=== PATIENT | male | born 1950 | race Caucasian/White ===

== ENCOUNTER → 2021-08-09 11:21 | Outpatient (CLI) | payer MEDICARE, SELFPAY ==
--- NOTE | 2021-08-09 | DI.MRI.S_ITS ---
PROCEDURE: MR LUMBAR SPINE WO CON INDICATIONS: Radiculopathy, lumbar region TECHNIQUE: Noncontrast sagittal T1 spin echo and T2 fast echo, sagittal STIR, and T2 fast spin echo through the lumbar spine. Oblique axial T2 weighted images are performed through the lower lumbar spine. COMPARISON: [facility], CR, XR LUMBAR SPINE WITH OLBIQUES PLUS FLEXION EXTENSION, 02/06/2020, 16:11. [facility] Outside Film, MR, MR LUMBAR SPINE WITHOUT CONTRAST, 10/12/2017, 16:45. [facility] Outside Film, MR, MR LUMBAR SPINE WITHOUT CONTRAST, 03/31/2019, 11:16. The outside images have no accompanying reports. FINDINGS: Image quality: Excellent. Alignment and Curvature: There is normal bony alignment. Bone Marrow: Marrow is of normal overall signal. No acute vertebral body compression fractures. Spinal Cord: Conus medullaris terminates at the L1 level. Visualized cord demonstrates normal signal and size. Paraspinous Soft Tissues: No paravertebral masses. T11-T12: Moderate loss of disc height is seen. Loss of disc signal is seen. There is a central disc extrusion, with superior migration of the disc material. No significant neural foraminal narrowing is seen. Mild to moderate central canal narrowing is seen, with mild mass effect upon the ventral spinal cord, as on series 2, image 9. When comparison is made with the prior images, these findings are similar. T12-L1: No significant abnormality is seen. L1-L2: The disc height and disc signal are relatively well preserved. Mild disc bulge is seen, with a central/left disc protrusion, as on series 5, image 11. There is [id number] left-sided and no significant right-sided neural foraminal narrowing seen. Mild central canal narrowing is seen. The central/left disc protrusion is new compared to 2019. L2-L3: The disc height is well-preserved. Loss of disc signal is seen at this level. Moderate generalized disc bulge is seen. There is a superimposed central disc protrusion. Mild to moderate facet hypertrophy is seen. There is moderate to severe left-sided and at least moderate right-sided neural foraminal narrowing seen. There is a degree of compression seen upon the exiting nerve roots. Moderate central canal narrowing is seen. These imaging findings have progressed compared to the prior study. L3-L4: The disc height is well-preserved. Loss of disc signal is seen at this level. At least moderate disc bulge is seen, which is eccentric to the right. There is a superimposed central disc protrusion. Moderate facet joint hypertrophy is seen. There is moderate to severe bilateral neural foraminal narrowing seen, right worse than left. There is a degree of compression seen upon the exiting nerve roots. Moderate to severe central canal narrowing is seen at this level. These degenerative changes are mildly progressed compared to 2019. L4-L5: The disc height is well-preserved. Loss of disc signal is seen at this level. At least moderate disc bulge is seen, which is eccentric to the left. There is a superimposed central disc protrusion. At least moderate facet hypertrophy is seen. There is moderate to severe bilateral neural foraminal narrowing seen, with an associated a degree of compression seen upon the exiting nerve roots. Moderate central canal narrowing is seen. These degenerative changes are slightly progressed compared to 2019. L5-S1: The disc height and disc signal are relatively well preserved. Mild to moderate disc bulge is seen, which is eccentric to the right. There is at least moderate facet hypertrophy seen. There is moderate to severe bilateral neural foraminal narrowing seen, with an associated a degree of compression seen upon the exiting nerve roots. Minimal to mild central canal narrowing is seen. When comparison is made with the prior images, these findings are similar. IMPRESSION: Multiple levels of lumbar spine degenerative change are seen, which are overall progressed compared to the outside 2019 examination. Dictated by: Abdi Gabriel M.D. on 08/09/2021 at 15:33 Approved by: Abdi Gabriel M.D. on 08/09/2021 at 15:38
== END ==
PROVIDERS: PCP Internal Medicine; Referring Provider Physical Medicine & Rehabilitation; Visit Provider Physical Medicine & Rehabilitation
DX: M47.26 Other spondylosis with radiculopathy, lumbar region (principal); M47.27 Other spondylosis with radiculopathy, lumbosacral region
CPT/HCPCS: 72148

== ENCOUNTER → 2021-09-26 10:50 | Outpatient (CLI) | payer MEDICARE, SELFPAY ==
--- NOTE | 2021-09-26 11:01 | DI.CT.S_ITS ---
PROCEDURE: CT LUMBAR SPINE WO CON INDICATIONS: SPINAL STENOSIS TECHNIQUE: Noncontrast 3 mm thick sections acquired from the T12 level to the sacrum. Sagittal and coronal reformats were constructed. For radiation dose reduction, the following was used: automated exposure control. COMPARISON: [facility], MR, MR LUMBAR SPINE WO CON, 08/09/2021, 12:04. FINDINGS: Normal lumbar vertebral body height and alignment. No suspicious lytic or blastic osseous lesion. 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 Disc height loss at every level in the lumbar spine. Vacuum disc phenomenon noted at T11-T12 and L2-L3. Mgfj-[id number] facet osteoarthropathy from L3-L4 through L5-S1 characterized by joint space narrowing with subchondral sclerosis and osteophytosis. Unenhanced regional soft tissues demonstrate no acute abnormality. Aortic and common iliac atherosclerosis. Punctate non-obstructing right renal calculi. T12-L1: No spinal canal or neural foraminal stenosis. L1-L2: Diffuse disc bulge without spinal canal stenosis. Foraminal components of the disc bulge produce mild bilateral neural foraminal stenosis in conjunction with congenital shortening of the pedicles. L2-L3: Diffuse disc bulge flattens the ventral thecal sac, combining with bulky facet hypertrophy and buckling of the ligamentum flavum to produce overall mild to moderate spinal canal stenosis, with contribution from congenital shortening of the pedicles. L3-L4: Diffuse disc bulge and a superimposed broad-based posterior disc protrusion flatten and indent the ventral thecal sac. There is a calcified annular component of the disc bulge blending with posterior osteophytic ridging of the inferior L3 endplate in the central and paracentral zones. There is overall moderate to severe spinal canal stenosis. Foraminal components of the disc bulge and facet hypertrophy combine to produce moderate to severe bilateral neural foraminal stenosis. L4-L5: Diffuse disc bulge with a superimposed broad-based posterior disc protrusion flattens and indents the ventral thecal sac, combining with moderate facet hypertrophy and buckling of the ligamentum flavum to produce overall moderate spinal canal stenosis. Foraminal components of the disc bulge and facet hypertrophy combine to produce moderate to severe bilateral neural foraminal stenosis. L5-S1: Diffuse disc bulge with displacement of the descending S1 nerve roots in both subarticular zones. Foraminal components of the disc bulge and facet hypertrophy combine to produce moderate bilateral neural foraminal stenosis with disc material abutting and perhaps slightly flattening the exiting L5 nerve roots. 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 Moderate to severe spinal canal stenosis at L3-L4 with moderate spinal canal and subarticular zone stenosis at L4-L5 and L5-S1 also. Varying degrees of neural foraminal stenosis up to moderate with areas of potential focal nerve root impingement. Findings have not changed considerably when compared with July 2021 exam, allowing for slight differences due to change in modality. Dictated by: Krzysztof Mason M.D. on 09/26/2021 at 16:35 Approved by: Krzysztof Mason M.D. on 09/26/2021 at 16:44
== END ==
PROVIDERS: PCP Internal Medicine; Referring Provider Orthopaedic Surgery Orthopaedic Surgery of the Spine; Visit Provider Orthopaedic Surgery Orthopaedic Surgery of the Spine
DX: Z01.818 Encounter for other preprocedural examination (principal); M48.061 Spinal stenosis, lumbar region without neurogenic claudication
CPT/HCPCS: 72131; 93005; 93010

== ENCOUNTER → 2021-10-13 10:41 | Outpatient (CLI) | payer MEDICARE, SELFPAY ==
[2021-10-13 11:42] LABS: Add Manual Diff / Slide Review NO; Basophils Absolute Auto 100 /uL (0-100); Basophils Percent Auto 1.2 % (0-2); Eosinophils Absolute Auto 100 /uL (0-450); Eosinophils Percent Auto 1.9 % (2-4); Hemoglobin 13.3 g/dL (13.5-17.5); Lymphocytes Absolute Auto 1800 /uL (1100-4500); Lymphocytes Percent Auto 24.2 % (25-40); Mean Corpuscular HGB Conc 35.1 % (30-36); Mean Corpuscular Hemoglobin 30.6 PG (26-34); Mean Corpuscular Volume 87.2 fL (80-100); Monocytes Absolute Auto 500 /uL (0-900); Neutrophils Absolute Auto 4900 /uL (1500-7000); Neutrophils Percent Auto 65.7 % (50-75); Platelet Count 248 X10^3/uL (150-400); Red Blood Cell Count 4.35 X10^6/uL (4.5-5.9); White Blood Cell Count 7.4 X10^3/uL (4.5-11.0)
[2021-10-13 12:05] LABS: Hemoglobin A1C% w Est Avg Glu 6.1 % (4.0-6.0)
[2021-10-13 12:06] LABS: BUN Creatinine Ratio 23.4 (6-22); Blood Urea Nitrogen 29 mg/dL (9-20); Calcium 9.5 mg/dL (8.4-10.2); Carbon Dioxide 33 mmol/L (22-32); Chloride 100 mmol/L (98-107); Estimated Glomerular Filt Rate > 60 mL/min (>60); Glucose 107 mg/dL (80-110); HEMOLYSIS < 15 (0-50); Potassium 4.1 mmol/L (3.4-5.1); Sodium 140 mmol/L (137-145)
== END ==
PROVIDERS: PCP Internal Medicine; Referring Provider Orthopaedic Surgery Orthopaedic Surgery of the Spine; Visit Provider Orthopaedic Surgery Orthopaedic Surgery of the Spine
DX: R73.9 Hyperglycemia, unspecified (principal); Z01.812 Encounter for preprocedural laboratory examination
CPT/HCPCS: 36415; 80048; 83036; 85025

== ENCOUNTER → 2021-10-21 10:18 | Outpatient (CLI) | payer MEDICARE, SELFPAY ==
[2021-10-21 10:55] LABS: COVID19 -Nasal RAPID Negative (Negative)
== END ==
PROVIDERS: PCP Internal Medicine; Referring Provider Orthopaedic Surgery Orthopaedic Surgery of the Spine; Visit Provider Orthopaedic Surgery Orthopaedic Surgery of the Spine
DX: Z20.822 Contact with and (suspected) exposure to COVID-19 (principal)
CPT/HCPCS: 87635; C9803

== ENCOUNTER 2021-10-24 06:03 | Day surgery (SDC) | payer MEDICARE, SELFPAY ==
[2021-10-19 08:16] VITALS: BMI 35.5
[2021-10-24] VITALS (14 sets, daily range): BP systolic 100–131; BP diastolic 39–70; PULSE 57–96; RESP 11–18; TEMP 35.7–36.5; O2SAT 87–99; BMI 35.5
--- NOTE | 2021-10-24 | DI.RAD.S_ITS ---
PROCEDURE: XR LUMBAR SPINE 2-3V INDICATIONS: L4-5 L5-S1 TLIF TECHNIQUE: 2 intraoperative fluoroscopic views of the lumbar spine were acquired. COMPARISON: None. FINDINGS: Intraoperative fluoroscopic images of lumbar spine shows transpedicular fusion at L4 through S1 levels with intervertebral spacer placement at L4-5 and L5-S1 levels. IMPRESSION: Fluoro guidance was provided intraoperatively for posterior fusion at L4 through S1 levels. Dictated by: Ric Dougherty M.D. on 10/24/2021 at 14:26 Approved by: Ric Dougherty M.D. on 10/24/2021 at 14:58
[2021-10-24] MEDS: LACTATED RINGERS 1,000 ML 84 ML IV ×2 (06:50→10:30)
[2021-10-24] MEDS: GABAPENTIN 600 MG TABLET PO (07:38)
--- NOTE | 2021-10-24 07:42 | PM.PREOP ---
Pre-operative Note COVID-19 COVID-19 status: Negative Result date/Date tested (Pos, Neg/Pending): 10/23/21 Criteria for continued procedure: Expected advancement of disease process, Possibility delay results in more complex future surgery or treatment, Increased loss of function, Continuing or worsening of significant or severe pain, Deterioration of the patient's condition or overall health and Delay expected to result in less-positive ultimate med/surg outcome Interval Note History & Physical reviewed/Exam performed by Physician: Yes Changes to H&P: No
[2021-10-24] MEDS: CEFAZOLIN 2 GM/20 ML SYRINGE IV ×3 (08:05→20:18)
--- NOTE | 2021-10-24 08:34 | SUR.OPER ---
Prone on spine table, head in foam head support, padded chest and pelvic supports, gel pad at knees, lower legs supported by pillows; nipples, genitalia and toes free of pressure, arms secured on foam padded arm boards at <90 degrees abduction. Tape over blanket at thigh secured to table.
[2021-10-24] MEDS: BUPIVACAINE 0.25% (PF) 30 ML, EPINEPHrine 0.3 MG INJ (08:43)
[2021-10-24] MEDS: BUPIVACAINE LIPOSOME 266 MG/20 ML VIAL INJ (08:44)
[2021-10-24] MEDS: ACETAMINOPHEN IV 1,000 MG/100 ML VIAL 400 MG IV (09:00)
--- NOTE | 2021-10-24 12:11 | P.OP_ITS ---
Operative Date/Time/Diagnoses Date of procedure: 10/24/21 Time of procedure: 07:45 Pre-op diagnosis: 1. L4-5, L5-S1 spinal stenosis with neurogenic claudication 2. L4-5, L5-S1 spondylosis with radiculopathy Post-op diagnosis: same Procedure & Clinicians Procedure: 1. L4-5, L5-S1 Postero-lateral and posterior interbody fusion 2. L4-5, L5-S1 interbody cage placement. 3. L4-5, L5-S1 decompressive laminectomy with bilateral facetecomies 4. L4-5, L5-S1 Posterior segmental instrumentation 5. Clyde of bone marrow from iliac crest 6. Utilization of microsurgical technique and operating microscope 7. Utilization of robotic assisted navigation Same procedure as scheduled: Yes Indications: Patient has been having chronic back pain and worsening lumbar radiculopathy and symptoms of neurogenic claudication. Patient failed multiple conservative management with worsening pain weakness and numbness in his lower extremity. Patient has been having difficulty performing activity of daily living. After discussing risks benefits of treatment options, patient elected proceed with surgery. Surgeon: Dionne Smart Custom Bike Builder: Marga Monreal Click Yes if Unassisted: No Anesthesia Type: General Operative Notes Closure Type: primary Specimen(s): none sent Prosthetic devices, grafts, tissues, transplants, or devices: Globus CREO MIS screws, Rise cages Applied: catheter Estimated Blood Loss (mL): 100 Blood products transfused: none Procedure in detail: Patient was seen in the preoperative area. Risks and benefits of the surgery was discussed with the patient. Informed consent was obtained from the patient and p laced in the chart. Surgical site was marked. Patient was taken to the operative room. General anesthesia was administered. Prophylactic antibiotic was given to the patient less than 30 min before the incision was made. Patient was placed into a prone position on the [place] table. Patient's back was then prepped and draped in the sterile fashion. Time-out was performed at this time. After patient was prepped and draped, patient's PSIS was palpated and marked bilaterally. Small 1 cm incision was made over the PSIS for placement of the reference probes. Two trocar was placed into the PSIS 1 on each side. The reference probe was attached to the trocar of the reference apparatus. At this time the C-arm imaging was used to confirm AP and lateral of L4-L5, L5- S1 vertebrae and merged the C-arm imaging using the [employer] robotic navigation system with the CT of the lumbar spine. After successful merging was completed and confirmed, skin marker was used to guerrero out the skin incision using the [employer] robotic arm. Bilateral incision was made at this time. Pre templated trajectory was used and guided using the [employer] robotic navigation system for bilateral L4, L5, S1 pedicle screw placement. This was done by using the robotic arm to guide the high-speed bur to make a cortical entry point. Next a drill was placed also using the robotic arm and guided using the navigation system drilling partially through bilateral L4, L5 and S1 pedicles. Next L4, L5, S1 pedicle screws it was pre templated and measured was placed onto the power front loader residential driver and inserted into the pedicles bilaterally. After all 6 screws were placed C-arm imaging was taken of both AP and lateral to confirm the placement. Excellent placement of the screws were confirmed and a matched precisely with the pre planned screw placement using the navigation system. MARs retractor was inserted using wumoivation guidence. Globus MARS retractors was placed inside the incision and docked onto the L4 and L5 lamina. Using microsurgical technique and operating microscope, a L4, L5 laminectomy and L4-5, L5-S1 facetectomy was performed using a Kerrison rongeur. Patient was found have severe lateral recess and neural foramen stenosis which was fully decompressed after the laminectomy facetectomy. More than 75% of the facets were removed during the process of decompression rendering L4-5, L5-S1 level grossly unstable and required a fusion procedure at the same time. The disc space at L4-5, L5-S1 was identified, and a total diskectomy was performed at L4- 5, L5-S1 level. The endplates were decorticated using a rasp and shaver. The total diskectomy and decortication was performed at L4-5, L5-S1 level in order to to accomplish a L4-5, L5-S1 fusion. The local bone from the laminectomy and facetectomy was saved for local bone grafting. After the total diskectomy and decortication was completed, Trifecta bone graft material was combined with local bone that was harvested earlier. At this time, a separate skin is incision was made over the iliac crest. A Jamshidi needle was inserted into the iliac crest through a separate skin incision. 5 cc of bone marrow aspiration was obtained through the separate skin incision using a Jamshidi needle from the iliac crest. The bone marrow aspiration was combined with local bone and the Trifecta bone grafting material. The bone grafting material was placed into the L4-5, L5-S1 interbody space along with a expandable cage. The cage was expanded to its maximum height using the torque limiting screwdriver. The disc preparation as well as the cage insertion were also performed under navigation guidance. After the cage was placed, AP and lateral C-arm imaging was taken to confirm placement of the cage and excellent position was confirmed. Globus MARS retractor was inserted and docked onto the L4-5, L5-S1 posterolateral gutter on the right side. Using the power drill, posterior- lateral decortication was performed at L4-5, L5-S1 level until bleeding cortical bone was identified. The remaining bone grafting material was placed into the L4-5, L5-S1 posterior lateral gutter he order to accomplish posterolateral fusion at the L4-5, L5-S1 level. At this time the tulips were attached to the L4, L5, S1 pedicle screw shanks. After measuring the length of the rods, they were inserted into the tulips of the pedicle screws and locked in place using locking caps and torque limiting screwdriver bilaterally. Total 6 caps and 2 titanium rods was used in order to complete the posterior instrumentation construct. After all the hardware was placed, and confirmed with AP and lateral C-arm imaging, the wound was then irrigated with sterile normal saline and packed with Ray-Shalini gauze for 3 min to accomplish hemostasis. After the gauze was removed the deep fascia was closed with #1 Vicryl suture. The subcutaneous layer was closed with 2-0 Vicryl. The skin was closed with skin toya. Patient tolerated the procedure well. There were no complications. Neuro monitoring system was used to monitor patient's neurologic status throughout entire procedure. There was no disturbance of the neural monitoring signals throughout the case. Complications: none Post-operative Condition: stable Disposition: PACU Plan for aftercare: Admit to inpatient hospital
[2021-10-24] MEDS: hydrOXYzine pamoate 25 MG CAPSULE PO (12:32)
[2021-10-24] MEDS: OXYCODONE IR 5 MG TABLET PO (12:32)
[2021-10-24] MEDS: OXYCODONE IR 5 MG TABLET 10 MG PO ×4 (14:27→23:16)
[2021-10-24] MEDS: SODIUM CHLORIDE 0.9% 1,000 ML 100 ML IV (14:28)
[2021-10-24] MEDS: FUROSEMIDE 20 MG TABLET PO (14:28)
[2021-10-24] MEDS: GABAPENTIN 300 MG CAPSULE 600 MG PO ×2 (14:28→20:17)
[2021-10-24] MEDS: HYDROMORPHONE 0.5 MG INJ IV ×2 (14:54→18:53)
--- NOTE | 2021-10-24 15:48 | PT.IIE ---
Current Diagnoses Other spondylosis with radiculopathy, lumbar region (10/24/21) Spinal stenosis, lumbar region with neurogenic claudication (10/24/21) Surgery Performed Operation Date: 10/24/21 07:45 Actual Procedures p L4-5, L5-S1 TLIF w. posterior instrumentation -Robot - Dionne Smart MD Surgical History (Last Updated 10/19/21 @ 09:18 by Robina Slater, RN) H/O vasectomy (~1983) History of surgery (2006) Medical History (Last Updated 10/19/21 @ 09:18 by Robina Slater RN) BCC (basal cell carcinoma) HLD (hyperlipidemia) HTN (hypertension) Kidney stones Macular degeneration of both eyes PATRICIA on CPAP Pre-diabetes RBBB (right bundle branch block) Sciatica Seasonal allergies Spinal stenosis Physical Therapy Inpatient Evaluation/Re-Eval M1 PT/OT-IP Prior Functional Status Start: 10/24/21 15:02 Freq: NEEDED Status: Active Protocol: Document 10/24/21 15:48 AW (Rec: 10/24/21 16:16 AW [id number]) Medical Review Prior Functional Status Medical History Reviewed Yes Communication WNL. Pt is an effective verbal communicator. Mobility and Gait Pt states he has RLE weakness that affects his stability in gait but he denies falls. He has been using a tripod cane more often recently and notes that he does tend to cruise furniture and deras due to weakness. Activities of Daily Living and IADL's Pt is largely independent with ADLs but admits he sometimes needs help to don socks and shoes. He drives. He manages his own medications. Social History Household Members spouse Living Arrangements House Number of Floors (Floors) One Floor Number of Stairs To Enter/Railing? 3 DINORAH from garage to kitchen with L rail ascending. There are also 3 DINORAH at front of house but there is no rail. Home Environment Standard Height Toilet,Tub/ Shower Home Equipment Four Wheel Walker,Straight Cane,Hand Held Shower,Long Handled Shoe Horn,Dermatologist And Dermatopathologist Additional Social History Comment Pt tends to exit his bed to the left. His bed is very tall and he may need a step to get in and out. He has a recliner which could be an alternative for sleeping. In the bathroom , there is a sink and a windowsill next to the toilet but no grab bars. 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 He lives in [place] with his who is available to assist but has back pain of her own which may limit her ability to provide much physical assist. M2 PT-IP Current Condition Start: 10/24/21 15:02 Freq: NEEDED Status: Active Protocol: Document 10/24/21 15:48 AW (Rec: 10/24/21 16:16 AW [id number]) Physical Therapy Current Condition Current Condition Evaluation Date 10/24/21 Treatment Diagnosis s/p L4-5 L5-S1 TLIF; chronic LBP; impaired mobility and gait. Onset Date 10/24/21 M3 PT-IP Subjective Start: 10/24/21 15:02 Freq: NEEDED Status: Active Protocol: Document 10/24/21 15:48 AW (Rec: 10/24/21 16:16 AW [id number]) Subjective Physical Therapy Visit Type Type Initial Evaluation Visit Start Time 15:15 Visit Stop Time 15:48 Total Visit Minutes 33 Notes Pt's spouse was present and attentive to all education throughout evaluation. Number of TOOL MACHINE SET UP OPERATOR Visits 0 Physical Therapy Visit Comments Patient Comments Moving usually does help my pain. Patient Goals Return home with spouse support Therapy Pain Assessment Pain When Pain Assessed During Mobility Pain Present Pain Present Pain Reported Location back Intensity 3 Scale Used Numeric (0 - 10) Pain Management Techniques Re-positioning,Timing of Activity with Medications M4 PT-IP Mobility and Gait Start: 10/24/21 15:02 Freq: NEEDED Status: Active Protocol: Document 10/24/21 15:48 AW (Rec: 10/24/21 16:16 AW [id number]) PT-Bed Mobility Assessment Rolling Type of Rolling Log Rolling,Roll to Left Level of Assist Minimal Assistance,1 Person Assistance Supine to Sit Supine to Sit Minimal Assistance,1 Person Assistance,Bedrails Scooting Scooting to Edge of Bed Contact Guard Assistance PT-Transfer Assessment Sit to and From Stand Sit to and from Stand Minimal Assistance,1 Person Assistance,Use of Upper Extremities Equipment Transfer Assistive Device Gait Belt,Front Wheeled Walker Orthotic/Prosthetic Devices or Brace: No Transfers Transfer Destination Chair Transfer Technique ambulated with FWW Transfer Ability Level of Assist Contact Guard Assistance, Minimal Assistance,1 Person Assistance,Use of Upper Extremities Comments Mobility Comments Pt was lying in bed as PT arrived. BP 126/58 HR 88. PT instructed pt on post-op precautions and log roll for bed mobility. Pt indicated he gets out of bed at home going to his left side. He was able to log roll left with min A and mod cues. Min A and cues for SL to sit. Pt sat EOB and denied increase in pain, denied lightheadedness. He stood min A and steadied himself with FWW. He ambulated around the bed to the chair with FWW CGA. He transferred to the chair min A with cues for hip hinge and use of UE to control descent. Pt agreed to practice sit to stand, completing two more reps CGA with improved hip hinge mechanics. Pt agreed to sit up on the chair and to call for assist when ready to get up or get back to bed. Informed nursing of pt's mobility and indicated possible need for chair alarm. Gait Assessment Gait Gait Assistance Required: Contact Guard Assist Distance (Feet) 20 Able to Maintain Weight Bearing Status Yes During Gait Assistive Devices Assistive Device Gait Belt,Front Wheeled Walker Orthotic/Prosthetic Devices or Brace: No Gait Deviations General Gait Pattern Antalgic,Decreased Stride Length,Decreased Feet Clearance,Step-to Gait Factors Limiting Gait Function Factors Limiting Gait Function Decreased Strength,Limited Range of Motion,Pain Comments Gait Comments Pt moved safely with FWW, needing CGA and assist for line management. Stair Climbing Assessment Comments Stair Climbing Comments Not assessed. PT-Balance Assessment Sitting Balance and Reactions Static Sitting Balance Ability Good Dynamic Sitting Balance Ability Good Standing Balance and Reactions Static Standing Balance Ability Good Dynamic Standing Balance Ability Fair Device Used FWW M5 PT-IP Objective Assessments Start: 10/24/21 15:02 Freq: NEEDED Status: Active Protocol: Document 10/24/21 15:48 AW (Rec: 10/24/21 16:16 AW [id number]) Orientation Orientation/Cognition Level of Alertness Alert Orientation Name,Day of Week,Place, Situation Language Function Ability No Deficits Noted Safety Awareness Understands Safety Issues Memory Description No Deficits Noted Gross Range of Motion Lower Extremity ROM Assessment Within Functional Limits Strength Lower Extremity Strength Assessment Bilaterally Impaired Hip 4-/5 Knee 4/5 Ankle 4+/5 Sensation Assessment Sensation Gross Sensation Right LE Impaired Sensation Description Numbness,Tingling Muscle Tone Muscle Tone WNL Yes M6 PT-IP Treatment Start: 10/24/21 15:02 Freq: NEEDED Status: Active Protocol: Document 10/24/21 15:48 AW (Rec: 10/24/21 16:16 AW [id number]) Physical Therapy Treatment Education Education Provided Precautions,Weight Bearing Status,Post-Op Packet,Safety Other Treatments Other Treatment Performed Educated pt and his spouse on post-op precautions, safe use of FWW, and need for assist with mobility at this time. M7 PT-IP Assessment and Plan Start: 10/24/21 15:02 Freq: NEEDED Status: Active Protocol: Document 10/24/21 15:48 AW (Rec: 10/24/21 16:16 AW [id number]) PT Summary Assessment and Plan Potential Rehabilitation Potential Good Status of Condition at Evaluation Evolving Summary Impairments Pain,ROM,Strength,Balance, Sensation,Bed Mobility, Transfers,Gait,Activity Tolerance Assessment Summary Vik is a 71 yo man seen for PT evaluation on POD0 following L4-5 L5-S1 TLIF. He is independent to modified independent with mobility using hurry cane occasionally at baseline. He does note RLE weakness which affects mobility. On assessment today, pt understood his post-op precautions and needed CGA to min assist with mobility using FWW. Pt will have his to assist at home but she has back pain that will limit her ability to assist physically. Pending progress, pt is likely to improve during hospital stay to the level of safe discharge home with spouse assist. PT did recommend tub transfer bench for home and advised the pt he may need a FWW if unsafe with 4WW. Goals Bed Mobility Goal Standby Assistance Transfer Goal Standby Assistance,Four Wheeled Walker Gait Goal Standby Assistance,Four Wheel Walker Gait Distance 200 Other Goals - up-down 3 steps with L rail ascending SBA Days to Meet Goals 4 Frequency of Treatment Frequency Of Treatment Twice a Day Treatment Plan Physical Therapy Treatment Plan Bed Mobility Training,Transfer Training,Gait Training, Therapeutic Exercise,Balance Retraining,Post Op Education, Discharge Planning,Hot or Cold Pack,Neuromuscular Re-ed Other Recommendations and Next Treatment review precautions and log Focus roll; assess gait and transfers with 4WW if safe with FWW; stairs when appropriate Precautions Lumbar Precautions Log Roll,No Twisting,Limit Bending,Lifting Restriction of 10 lbs,Gait Belt above Incisional Area Recommendations To Nursing Amount of Assist Needed 1 Person Assist Discharge Recommendations PT Discharge Recommendations Home with Assistance Equipment Needed for Home Before -tub transfer bench Discharge -may need FWW if unsafe with 4WW Transportation Needs at Discharge Private Vehicle
--- NOTE | 2021-10-24 18:46 | PC.NURSE ---
Pt arrived to the unit around 1330 from OR. Pt is AxOx4, pt was slightly groggy but answers fine. VSS, pt c/o lots of pain on his back and recieved PRN PO Oxy 10 x2 with good effect. Pt also recieved PRN IV Dilaudid 0.5mg between those oxy. It was effective. Pt ate dinner and walked in the room with 1 person assistance and went to bed. Drsg on his back is C/D/I. Other than pain, pt is doing well. Roger is draining clear, yellow urine. No other changes.
[2021-10-24] MEDS: ATORVASTATIN 20 MG TABLET PO (20:17)
[2021-10-24] MEDS: DOCUSATE 100 MG CAPSULE PO (20:17)
[2021-10-24] MEDS: SENNOSIDES 8.6 MG TABLET 17.2 MG PO (20:17)
--- NOTE | 2021-10-24 23:04 | RT ---
Patient own home CPAP set up. Patient will place self on and off as needed.
[2021-10-25] VITALS: BP 123/45; PULSE 80; RESP 17; TEMP 36.1; O2SAT 96
[2021-10-25 04:00] VITALS: BP 119/52; PULSE 72; RESP 16; TEMP 36.6; O2SAT 97
[2021-10-25] MEDS: HYDROMORPHONE 0.5 MG INJ IV (04:12)
[2021-10-25] MEDS: CEFAZOLIN 2 GM/20 ML SYRINGE IV (04:12)
[2021-10-25] MEDS: OXYCODONE IR 5 MG TABLET 10 MG PO ×3 (05:15→11:31)
[2021-10-25 05:50] LABS: Hematocrit 33.7 % (41-53); Hemoglobin 11.8 g/dL (13.5-17.5)
[2021-10-25 07:41] VITALS: BP 124/48; PULSE 75; RESP 18; TEMP 36.6; O2SAT 96
[2021-10-25] MEDS: MULTIVITAMIN 1 TABLET 1 TAB PO (08:03)
[2021-10-25] MEDS: lisinopriL 20 MG TABLET PO (08:03)
[2021-10-25] MEDS: hydroCHLOROthiazide 25 MG TABLET PO (08:03)
[2021-10-25] MEDS: METOPROLOL ER 25 MG TABLET PO (08:04)
[2021-10-25] MEDS: DOCUSATE 100 MG CAPSULE PO (08:04)
[2021-10-25] MEDS: GABAPENTIN 300 MG CAPSULE 600 MG PO (08:04)
[2021-10-25] MEDS: FUROSEMIDE 20 MG TABLET PO (08:04)
[2021-10-25] MEDS: LORATADINE 10 MG TABLET PO (08:04)
--- NOTE | 2021-10-25 09:42 | PT.IPTN ---
Current Diagnoses Other spondylosis with radiculopathy, lumbar region (10/24/21) Spinal stenosis, lumbar region with neurogenic claudication (10/24/21) Surgery Performed Operation Date: 10/24/21 07:45 Actual Procedures p L4-5, L5-S1 TLIF w. posterior instrumentation -Robot - Dionne Smart MD Physical Therapy Treatment Note M2 PT-IP Current Condition Start: 10/24/21 15:02 Freq: NEEDED Status: Active Protocol: Document 10/24/21 15:48 AW (Rec: 10/24/21 16:16 AW [id number]) Physical Therapy Current Condition Current Condition Evaluation Date 10/24/21 Treatment Diagnosis s/p L4-5 L5-S1 TLIF; chronic LBP; impaired mobility and gait. Onset Date 10/24/21 M3 PT-IP Subjective Start: 10/24/21 15:02 Freq: NEEDED Status: Active Protocol: Document 10/25/21 09:18 KS (Rec: 10/25/21 11:04 KS [id number]) Subjective Physical Therapy Visit Type Type Treatment Note Visit Start Time 09:18 Visit Stop Time 09:42 Total Visit Minutes 24 Number of INSIDE SALES PERSON Visits 1 Physical Therapy Visit Comments Patient Goals Return home with spouse support M4 PT-IP Mobility and Gait Start: 10/24/21 15:02 Freq: NEEDED Status: Active Protocol: Document 10/25/21 09:18 KS (Rec: 10/25/21 11:04 KS [id number]) PT-Bed Mobility Assessment Scooting Scooting to Edge of Bed Standby Assistance PT-Transfer Assessment Sit to and From Stand Sit to and from Stand Standby Assistance,1 Person Assistance,Use of Upper Extremities Equipment Transfer Assistive Device Gait Belt,4 Wheeled Walker Orthotic/Prosthetic Devices or Brace: No Transfers Transfer Destination Chair Transfer Technique ambulated with 4WW Transfer Ability Level of Assist Standby Assistance,Contact Guard Assistance,1 Person Assistance,Use of Upper Extremities Comments Mobility Comments Pt in chair upon arrival and reports he did logroll w/o assistance to get out of bed. Pt sit<>stand w/ 4WW SBA and then ambulated ~50 ft and reported slight dizziness. BP: 139/51 sitting and then 139/ 52 standing and dizziness subsided. Pt continues ambulation w/ 4WW additional 50 ft to practice stairs and ascended/descended 3 steps w/ L rail and hurrycane in R ascending SBA w/ step to pattern. Pt then ambulated 100 ft back to room w/ 4WW SBA and returned to chair. Pt states he feels safe and ready to return home. Able to recall 3/3 spinal precautions and left in chair w/ all needs in reach. Gait Assessment Gait Gait Assistance Required: Standby Assistance,Contact Guard Assist,1 Person Assist Distance (Feet) 100 Able to Maintain Weight Bearing Status Yes During Gait Assistive Devices Assistive Device Gait Belt,4 Wheeled Walker Orthotic/Prosthetic Devices or Brace: No Gait Deviations General Gait Pattern Antalgic,Decreased Stride Length,Decreased Feet Clearance Factors Limiting Gait Function Factors Limiting Gait Function Decreased Strength,Limited Range of Motion,Pain Comments Gait Comments SBA to CGA w/ 4WW no LOB. Stair Climbing Assessment Evaluation Level of Assist On Stairs Standby Assistance,1 Person Assistance Devices Stair Climbing Assistive Devices Straight Cane,Left Railing Technique/Endurance Stair Climbing Direction Ascend and Descend Stair Climbing Technique Step to Step Number of Steps Climbed 3 Stair Climbing Set # Repetitions (reps) 1 Comments Stair Climbing Comments Pt ascended/descended 3 steps w/ L rail and R hurrycane SBA w/ step to pattern. Pt has 3 steps w/ L rail to enter home and feels confident he can perform safely upon return home. PT-Balance Assessment Sitting Balance and Reactions Static Sitting Balance Ability Good Dynamic Sitting Balance Ability Good Standing Balance and Reactions Static Standing Balance Ability Good Dynamic Standing Balance Ability Good Device Used FWW M5 PT-IP Objective Assessments Start: 10/24/21 15:02 Freq: NEEDED Status: Active Protocol: Document 10/24/21 15:48 AW (Rec: 10/24/21 16:16 AW [id number]) Orientation Orientation/Cognition Level of Alertness Alert Orientation Name,Day of Week,Place, Situation Language Function Ability No Deficits Noted Safety Awareness Understands Safety Issues Memory Description No Deficits Noted Gross Range of Motion Lower Extremity ROM Assessment Within Functional Limits Strength Lower Extremity Strength Assessment Bilaterally Impaired Hip 4-/5 Knee 4/5 Ankle 4+/5 Sensation Assessment Sensation Gross Sensation Right LE Impaired Sensation Description Numbness,Tingling Muscle Tone Muscle Tone WNL Yes M6 PT-IP Treatment Start: 10/24/21 15:02 Freq: NEEDED Status: Active Protocol: Document 10/25/21 09:18 KS (Rec: 10/25/21 11:04 KS [id number]) Physical Therapy Treatment Education Education Provided Precautions,Weight Bearing Status,Post-Op Packet,Safety Other Treatments Other Treatment Performed Reveiwed post op precautions and at home safety as well as proper use of 4WW. M7 PT-IP Assessment and Plan Start: 10/24/21 15:02 Freq: NEEDED Status: Active Protocol: Document 10/25/21 09:18 KS (Rec: 10/25/21 11:04 KS [id number]) PT Summary Assessment and Plan Potential Rehabilitation Potential Good Status of Condition at Evaluation Evolving Summary Impairments Pain,ROM,Strength,Balance, Sensation,Bed Mobility, Transfers,Gait,Activity Tolerance Progress Towards Goals Progressing Toward Goals Assessment Summary Pt showed good progress today and ambulated a total of ~200 ft w/ 4WW and ascended/ descended 3 steps w/ L rail. Pt able to recall precautions and correctly used 4WW w/ appropriate brake application. Pt states he feels safe and ready to return home. He will benefit from OPPT when appropriate to improve spinal and core stability. Goals Bed Mobility Goal Standby Assistance Transfer Goal Standby Assistance,Four Wheeled Walker Gait Goal Standby Assistance,Four Wheel Walker Gait Distance 200 Other Goals - up-down 3 steps with L rail ascending SBA Days to Meet Goals 4 Frequency of Treatment Frequency Of Treatment Twice a Day Treatment Plan Physical Therapy Treatment Plan Bed Mobility Training,Transfer Training,Gait Training, Therapeutic Exercise,Balance Retraining,Post Op Education, Discharge Planning,Hot or Cold Pack,Neuromuscular Re-ed Other Recommendations and Next Treatment review precautions and log Focus roll; assess gait and transfers with 4WW if safe with FWW; stairs when appropriate Precautions Lumbar Precautions Log Roll,No Twisting,Limit Bending,Lifting Restriction of 10 lbs,Gait Belt above Incisional Area Recommendations To Nursing Amount of Assist Needed 1 Person Assist Discharge Recommendations PT Discharge Recommendations Home with Assistance Equipment Needed for Home Before -tub transfer bench Discharge Transportation Needs at Discharge Private Vehicle
--- NOTE | 2021-10-25 09:50 | OT.IP.EVAL ---
Current Diagnoses Other spondylosis with radiculopathy, lumbar region (10/24/21) Spinal stenosis, lumbar region with neurogenic claudication (10/24/21) Surgery Performed Operation Date: 10/24/21 07:45 Actual Procedures p L4-5, L5-S1 TLIF w. posterior instrumentation -Robot - Dionne Smart MD Past Medical History (Last Updated 10/19/21 @ 09:18 by Robina Slater RN) BCC (basal cell carcinoma) HLD (hyperlipidemia) HTN (hypertension) Kidney stones Macular degeneration of both eyes PATRICIA on CPAP Pre-diabetes RBBB (right bundle branch block) Sciatica Seasonal allergies Spinal stenosis Surgical History (Last Updated 10/19/21 @ 09:18 by Robina Slater RN) H/O vasectomy (~1983) History of surgery (2006) Occupational Therapy Inpatient Evaluation/Re-Eval M1 PT/OT-IP Prior Functional Status Start: 10/24/21 15:02 Freq: NEEDED Status: Discharge Protocol: Document 10/24/21 15:48 AW (Rec: 10/24/21 16:16 AW [id number]) Medical Review Prior Functional Status Medical History Reviewed Yes Communication WNL. Pt is an effective verbal communicator. Mobility and Gait Pt states he has RLE weakness that affects his stability in gait but he denies falls. He has been using a tripod cane more often recently and notes that he does tend to cruise furniture and deras due to weakness. Activities of Daily Living and IADL's Pt is largely independent with ADLs but admits he sometimes needs help to don socks and shoes. He drives. He manages his own medications. Social History Household Members spouse Living Arrangements House Number of Floors (Floors) One Floor Number of Stairs To Enter/Railing? 3 DINORAH from garage to kitchen with L rail ascending. There are also 3 DINORAH at front of house but there is no rail. Home Environment Standard Height Toilet,Tub/ Shower Home Equipment Four Wheel Walker,Straight Cane,Hand Held Shower,Long Handled Shoe Horn,Burr Sander Additional Social History Comment Pt tends to exit his bed to the left. His bed is very tall and he may need a step to get in and out. He has a recliner which could be an alternative for sleeping. In the bathroom , there is a sink and a windowsill next to the toilet but no grab bars. 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 He lives in [place] with his who is available to assist but has back pain of her own which may limit her ability to provide much physical assist. M1 PT/OT-IP Prior Functional Status Start: 10/25/21 12:09 Freq: NEEDED Status: Active Protocol: Document 10/25/21 09:50 [facility] (Rec: 10/25/21 12:23 [facility] [id number]) Medical Review Prior Functional Status Medical History Reviewed Yes Communication WNL. Pt is an effective verbal communicator. Mobility and Gait Pt states he has RLE weakness that affects his stability in gait but he denies falls. He has been using a tripod cane more often recently and notes that he does tend to cruise furniture and deras due to weakness. Activities of Daily Living and IADL's Pt is largely independent with ADLs but admits he sometimes needs help to don socks and shoes. He drives. He manages his own medications. Social History Household Members spouse Living Arrangements House Number of Floors (Floors) One Floor Number of Stairs To Enter/Railing? 3 DINORAH from garage to kitchen with L rail ascending. There are also 3 DINORAH at front of house but there is no rail. Home Environment Standard Height Toilet,Tub/ Shower Home Equipment Four Wheel Walker,Straight Cane,Hand Held Shower,Long Handled Shoe Horn,Burr Sander Additional Social History Comment Pt tends to exit his bed to the left. His bed is very tall and he may need a step to get in and out. He has a recliner which could be an alternative for sleeping. In the bathroom , there is a sink and a windowsill next to the toilet but no grab bars. 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 He lives in [place] with his who is available to assist but has back pain of her own which may limit her ability to provide much physical assist. M2 OT-IP Current Condition Start: 10/25/21 12:09 Freq: Status: Active Protocol: Document 10/25/21 09:50 [facility] (Rec: 10/25/21 12:23 [facility] [id number]) Occupational Therapy Current Condition Current Condition Evaluation Date 10/25/21 Treatment Diagnosis s/p L4-5, L5-S1 TLIF Post Operative Precautions Lumbar Precautions Log Roll,No Twisting,Limit Bending,Lifting Restriction of 10 lbs,Gait Belt above Incisional Area M3 OT- IP Subjective and Pain Start: 10/25/21 12:09 Freq: Status: Active Protocol: Document 10/25/21 09:50 [facility] (Rec: 10/25/21 12:23 [facility] [id number]) OT- Subjective Occupational Therapy Visit Type Type Initial Evaluation Visit Start Time 09:50 Visit Stop Time 10:21 Total Visit Minutes 31 Occupational Therapy Visit Comments Patient Comments Pt agreed to get dressed and not wanting to take a shower. Patient/Caregiver Goals TO go home. OT Pain Assessment Pain When Pain Assessed At Rest Pain Present Pain Present Pain Reported Location back Intensity 2 Scale Used Numeric (0 - 10) M4 OT- IP ADL's Start: 10/25/21 12:09 Freq: Status: Active Protocol: Document 10/25/21 09:50 [facility] (Rec: 10/25/21 12:23 [facility] [id number]) OT ADL-Grooming General Evaluation Grooming Ability Standby Assistance Areas Needing Assistance Retrieving/Set-up of Grooming Items OT ADL-Oral Care General Eval Oral Care Ability Standby Assistance Areas of Assistance Retrieving/Set-Up of Items Comments Oral Care Comments Initial vc to hinge at his hips in order to best follow his back precautions during oral care needs. OT ADL-Dressing General Eval Lower Body Dressing Ability Moderate Assistance Comments OT Dressing Comments Able to practice use of government minister and sock aid. pt states thinking about getting a sock aid to use at home. OT ADL-Toileting Comments OT Toileting Comments Pt able to lean to the side to reach to wipe, or suggested to stand and wipe. OT ADL-Bathing Comments OT Bathing Comments Suggested getting shower chair for home use for safety. M5 OT- IP IADL's Start: 10/25/21 12:09 Freq: Status: Active Protocol: Document 10/25/21 09:50 [facility] (Rec: 10/25/21 12:23 [facility] [id number]) OT-Instrumental Activities of Daily Living Home Safety Awareness Awareness of Need for Assistance at Home Good Awareness Ability to Problem Solve Emergency Able to Problem Solve Situations Money Management Money Management Comments Pt states all his bills are paid til the end of the month. Meal Preparation Meal Preparation Caregiver Provides Assist Trim Master Operator Trim Master Operator Caregiver Provides Assist M6 OT- IP Functional Cognition Start: 10/25/21 12:09 Freq: Status: Active Protocol: Document 10/25/21 09:50 [facility] (Rec: 10/25/21 12:23 [facility] [id number]) Cognitive Factors Limiting Selfcare Function Cognitive Ability Level of Alertness Alert Patient Orientation Name,Age,Birthday,Month,Date, Year,Day of Week,Place, Situation Attention Span Ability Capable of Focused Attention, Capable of Sustained Attention Ability to Follow Commands Able to Follow Multi-Step Commands Safety Awareness No Deficits Noted Cognitive Comments Cognitive Assessment Comments Pt intact and able to follow back precautions for all his ADl and mobility needs. OT- Vision and Hearing OT- Hearing Assessment OT- Hearing Assessment WFL M7 OT- IP Mobility and Balance Start: 10/25/21 12:09 Freq: Status: Active Protocol: Document 10/25/21 09:50 [facility] (Rec: 10/25/21 12:23 [facility] [id number]) OT- Bed Mobility Assessment Rolling Type of Rolling Roll to Left Supine to Sit Supine to Sit Assist Standby Assistance Sit to Supine Sit to Supine Assist Standby Assistance Scooting Scooting to Edge of Bed Standby Assistance OT-Transfer Assessment Sit to and From Stand Sit to and from Stand Standby Assistance Transfers Transfer Ability Standby Assistance Technique Transfer Destination Bed,Chair Devices Transfer Assistive Devices Gait Belt,Front Wheeled Walker Comments Mobility Comments Pt needing education for best positioning if side lying bed with pillows. SBA for all other mobility needs with good safety. OT- Balance Assessment Sitting Balance and Reactions Static Sitting Balance Ability Normal Dynamic Sitting Balance Ability Good Standing Balance and Reactions Static Standing Balance Ability Good M8 OT- IP Objective Assessments Start: 10/25/21 12:09 Freq: Status: Active Protocol: Document 10/25/21 09:50 [facility] (Rec: 10/25/21 12:23 [facility] [id number]) OT-Muscle Tone Assessment Muscle Tone WNL Yes M9 OT- IP Assessment and Plan Start: 10/25/21 12:09 Freq: Status: Active Protocol: Document 10/25/21 09:50 [facility] (Rec: 10/25/21 12:23 [facility] [id number]) OT Summary Assessment and Plan Potential Rehabilitation Potential Excellent Analytic Complexity at Evaluation Low Summary OT Impairments Pain,Balance,Functional Mobility,Dressing,Toileting, Bathing,Toilet Transfers, Shower Transfers Progress Towards Goals Progressing Toward Goals Assessment Summary Pt low complexity and able to follow his back precautions for ADl and mobility needs. Pt looking to get a sock aid, and shower chair for home use. Pt to go home with his when medically stable. Goals Dressing Goal Minimal Assistance Toileting Goal Independent Bathing Goal Minimal Assistance Toilet Transfer Goal Independent Shower Transfer Goal Standby Assistance Days to Meet Goals 1 Frequency of Treatment Frequency Of Treatment Once a Day Treatment Plan OT Treatment Plan ADL Training,Functional Mobility,Patient/Family Education,Discharge Planning Discharge Recommendations OT Discharge Recommendations Home with Assistance Home Equipment Needs shower chair, sock aid Transportation Needs at Discharge Private Vehicle
[2021-10-25 10:34] VITALS: BP 124/48; PULSE 74
--- NOTE | 2021-10-25 10:35 | PC.NURSE ---
mckenzie d/c'd 0800, patient reported have to pee immediately after removal of intact mckenzie. approx 25 cc cloudy urine to hat. 1000: >200cc urinated. d'c PIV. assessed by OT right now, awaiting arrival of to pick and shovel man. will review d/c paperwork when Dolores arrives. see discharge.
--- NOTE | 2021-10-25 12:03 | PC.NURSE ---
reviewed wound care and d/c instructions w/ patient and . dressings to mid back changed, and instructed on specifics, how to remove soiled dressings, clean w/ NS. dressing supplies given to take home: 4x4 gauze, several saline flushes, paper tape. toya are intact, covered w/ xeroform gauze strips. all these areas cleansed w/ NS, patted dry, and covered w/ clean gauze and tape. they state they understand the d/c instructions. left floor via w/c and left facility in private car driven by Dolores, spouse.
--- NOTE | 2021-10-25 12:19 | CM.DANOTE ---
DCP: Case received, EMR reviewed and met with patient. Introduced self and role. Was able to obtain information regarding patient's baseline activity level at home prior to hospitalization. DCP assessment completed with information currently available. Patient is a 71 year old male who admitted yesterday morning to the care of the orthopedic team. PCP: Dr. Medina. Payer: confirmed: [employer] Medicare. Patient came to the hospital for a surgical procedure. He had L4-5, L5-S1 postero-lateral and posterior interbody fusion. Patient has history of spinal stenosis. Met with patient in his room. He is alert and oriented. Confirmed that he resides in [place] with spouse, Dolores. At his baseline, he does drive. He has been using a tripod cane, but now has a FWW available. Confirmed that his spouse will be able to assist him when he goes home. P: Patient has discharge orders for home today, and is cleared by P.T. Claudette Cantu RN/Seed Packer Discharge Planning/Care Management CM Discharge Assessment Start: 10/25/21 11:59 Freq: Status: Discharge Protocol: Document 10/25/21 11:59 (Rec: 10/25/21 12:01 [id number]) Discharge Planning Assessment Assigned Central Supply Assistant Claudette Cantu RN/Seed Packer Advance Directives? No History Provided By Patient,Medical Record Prior Living Arrangements House Household Members spouse Type of transporation used prior to Drives own vehicle admit Independent with ADL's Yes Is patient alert and oriented? Yes Caregiver for Another No DME Already Rented / Owned FWW / Walker,Cane Barriers to Discharge No Discharge Plan Home Referrals Initiated None needed Whiteboard Updated in Patient Room with Yes name and ext. # of Central Supply Assistant Review Status In Process Next Review Type Continued Stay Review Pre-Anesthesia Assessment Start: 10/19/21 08:16 Freq: Status: Discharge Protocol: Document 10/19/21 08:16 [facility] (Rec: 10/19/21 09:31 [facility] [id number]) Pre-Anesthesia Assessment Preferred Name Eduardo Patient Information Reviewed Via Phone Assessment Assessment Completed With Patient Diagnostic Results BMP/CMP,CBC,EKG Comment Labs/ECG @ [facility], COVID screen @ [facility] 10/21/21 Primary Care Provider Zelalem Medina Seen Specialist in Last 12 Months Yes Specialist Seen Informatics Manager,Orthopedist Primary Language Divehi Bulk Station Agent Required No Height 5 ft 7 in Weight 227 lb Body Mass Index (BMI) 35.5 Hearing Ability Normal Visual Assist Glasses Dentition Type Teeth, Natural Present Barriers to Learning None Hx Anesthesia Reactions No Hx Family Anesthesia Reaction No Hx Malignant Hyperthermia No Hx Blood Transfusions No Anesthesia Review Requested No alcohol intake current alcohol intake frequency holidays/special occasions only Smoking Status Former smoker Tobacco type cigarettes how long ago did patient quit smoking Quit 2007 Substance Use Type marijuana Comment Advised not to smoke marijuana 24 hours prior Pain Present Pain Reported Musculoskeletal Symptoms Abnormal Gait,Back Pain, Difficulty Walking,Radiating Pain into Limb History of Falling (Recent or History of Yes ) Patient is completely paralyzed or No completely immobile Prosthesis or Orthotic Device Cane Mental Status Oriented to own ability Is patient on oxygen? No Does patient have MCDANIEL/SOB No Hx Sleep Apnea Yes CPAP/BIPAP use prescribed and used routinely Will Bring CPAP/BIPAP DOS Yes Currently Taking a Beta Tiffany Yes: Metoprolol Hx Chest Pain No Hx SOB No Hx Syncope or Dizziness No Anti-Coagulant Therapy Yes: Takes ASA 325 daily for general health-advised to hold 7 days Has a Clay Plant Treater No Cardiac Testing No Hx Pacemaker/ICD No Pacemaker Rep Required? No Cardiac Clearance Received Not Applicable Diet Type At Home Regular dysphagia No Bladder Pattern Nocturia Urinary Catheter Present No Hx Urinary Self Catheterization No Diabetes No: Pre-diabetes HgbA1C 6.0 Date 10/13/21 Hx Drug Resistant Organism No Presence of External or Internal Medical No Devices Have you had any close contact with No someone diagnosed with COVID-19? Received a COVID vaccine? Yes Received all doses? Yes Marital Status Lives With spouse Prior Living Arrangements House Number of Floors (Floors) One Floor Support System Spouse Does the Patient Have Assistance After Yes Surgery Patient Discharge Plan Description Return Home Comment Pt advised 2-3 day length of stay per surgeon Feels Safe in Current Environment Yes Been Physically Hurt or Threatened By a No Person in Current Environment Do you have thoughts of harming yourself None or others? Are you currently considering suicide? No Do you have a plan to hurt yourself or No Plan others? Do You Have Any Spiritual Beliefs That No May Affect Your HC Choices? Do You Have Any Cultural Practices That No May Affect Your HC Choices? Comment Christianity Who Can We Speak to About Patient's Care Family, friends Identifying Code for Release of Patient Declines to issue Information Health Care Proxy/Next of Kin Dolores () Health Care Proxy Emergency Contact Name Dolores () Emergency Contact Advance Directives? No Power of Water Pump Assembler No PAC Instructions Bring CPAP/BIPAP,Durable medical equipment,Medications to take/avoid,Nasal antibiotic ,No ETOH/petroleum product on skin DOS,NPO,Post-op transportation,Pre-surgical wash,Sensory aids,Sturdy shoes /comfortable clothes,Do not bring valuables and remove jewelry
--- NOTE | 2021-10-25 12:40 | PM.DS.1 ---
History of Present Illness History of Present Illness Date Patient Seen: 10/25/21 Time Patient Seen: 07:35 Chief complaint: Back pain Narrative: Patient states his pain is mild. Denies fever or chills. No nausea vomiting. Patient has assistance at home. Discharge Providers Provider Discharge Date: 10/25/21 Primary care physician: Zelalem Medina MD Consults: 10/24/21 07:17 Consult to Respiratory Therapy Evaluate & Treat Comment: Physician Instructions: Evaluate and treat 10/24/21 13:43 Consult to Occupational Therapy Evaluate & Treat Comment: Physician Instructions: Evaluate and treat Consult to Physical Therapy Evaluate & Treat Comment: Physician Instructions: Evaluate and Treat Discharge provider: Julius Delgado PA-C Summary Hospital Course Discharge Diagnosis: 1. L4-5, L5-S1 spinal stenosis with neurogenic claudication 2. L4-5, L5-S1 spondylosis with radiculopathy Hospital Course: 1. L4-5, L5-S1 Postero-lateral and posterior interbody fusion 2. L4-5, L5-S1 interbody cage placement. 3. L4-5, L5-S1 decompressive laminectomy with bilateral facetecomies 4. L4-5, L5-S1 Posterior segmental instrumentation 5. [place] of bone marrow from iliac crest 6. Utilization of microsurgical technique and operating microscope 7. Utilization of robotic assisted navigation Same procedure as scheduled: Yes Indications: Patient has been having chronic back pain and worsening lumbar radiculopathy and symptoms of neurogenic claudication. Patient failed multiple conservative management with worsening pain weakness and numbness in his lower extremity.? Patient has been having difficulty performing activity of daily living.? After discussing risks benefits of treatment options, patient elected proceed with surgery. Surgeon: Dionne Smart Visual Merchandiser: Marga Monreal Click Yes if Unassisted: No Anesthesia Type: General Operative Notes Closure Type: primary Specimen(s): none sent Prosthetic devices, grafts, tissues, transplants, or devices: Globus CREO MIS screws, Rise cages Applied: catheter Estimated Blood Loss (mL): 100 Blood products transfused: none Patient admitted to the hospital for the above-mentioned procedure. Patient consented to the same. Patient underwent lumbar fusion October 24, 2021. Patient back in his room recovering well as in stable condition. Catheter will be discontinued this morning. Patient will mobilize with physical therapy. Patient will need to be able to urinate on his own prior to discharge. He will discharge after physical therapy if safe for home environment. Exam Vital Signs (past 8 hours): - 10/25/21 07:41 10/25/21 10:34 Temperature 97.8 F Pulse Rate 75 74 Respiratory Rate 18 Blood Pressure 124/48 L 124/48 L Pulse Oximetry 96 Oxygen Flow Rate 0 Oxygen Delivery Method Room Air Oxygen Flow Rate 0 Narrative Exam Narrative: Pleasant 71-year-old male sitting comfortably in bedside chair. Dressing is Clean, dry, intact.. Motor functions intact bilateral lower extremities. Sensation grossly intact to light touch bilateral lower extremities. Objective Labs Result Diagrams: 10/25/21 05:30 Labs: Laboratory Results - last 24 hr 10/25/21 05:30 Hgb 11.8 L Hct 33.7 L PFSH Medical History BCC (basal cell carcinoma) HLD (hyperlipidemia) HTN (hypertension) Kidney stones Macular degeneration of both eyes PATRICIA on CPAP Pre-diabetes RBBB (right bundle branch block) Sciatica Seasonal allergies Spinal stenosis Surgical History H/O vasectomy (~1983) History of surgery (2006) Social History household members: spouse Smoking Status: Former smoker alcohol intake: current Discharge Assessment & Plan Assessment and Plan Assessment: Patient progressing as expected Plan of Treatment: Mobilize with physical therapy Discontinue Roger catheter Limit bending, twisting, lifting Multimodal pain management Discharge home today after physical therapy if safe for home environment. Discharge Plan Discharge Plan Patient Disposition: Home Provider Discharge Comment: Catheter will be discontinued and patient will need to urinate on his own prior to discharge home. Discharge home today after physical therapy if safe for home environment. Nursing Discharge Comment: monitor incision sites several times a day. Ice pack for pain control, and improved healing. take meds per order. call MD or return to ED if any complications arise: temp, fever > 101 F. follow up w/ PCP w/in 7-10 days of d/c. Discharge orders & Medications Discharge Orders: Discharge (Order); Ordered 10/25/21 Ordered By: Julius Delgado Prescriptions: New acetaminophen 325 mg Tablet 650 mg PO Q6HR PRN (Reason: Pain, Mild (1-3)) Qty: 60 0RF docusate sodium 100 mg Capsule 100 mg PO BID Qty: 20 0RF oxycodone 5 mg Tablet 10 mg PO Q3HR PRN (Reason: Pain, Severe (7-10)) Qty: 60 0RF Continued cetirizine [Zyrtec] 10 mg Tablet 10 mg PO DAILY aspirin 325 mg Tablet 325 mg PO DAILY simvastatin 40 mg Tablet 40 mg PO BEDTIME gabapentin 300 mg Capsule 600 mg PO TID lisinopril-hydrochlorothiazide 20-25 mg Tablet 1 tab PO DAILY furosemide 20 mg Tablet 20 mg PO QAM metoprolol succinate 25 mg Tablet Extended Release 24 Hr 25 mg PO DAILY fluticasone propionate 50 mcg/actuation [place],Suspension 2 spray INTRANASAL DAILY Rx Instructions: administer into each nostril vitamin A-vitamin C-vit E-min Tablet 1 tab PO DAILY Discontinued tramadol 50 mg Tablet 50 mg PO TID Follow up/Referrals: Dionne Samrt MD [Physician] - (Two weeks) Zelalem Medina MD [Primary Care Provider] - Diet/Activity/Treatments Diet: Diet as Tolerated Diet comment: general diet Activity: Limit bending, twisting, lifting Skin/Wound/Dressing Care Report to your healthcare provider any signs of infection, such as:: chills, fever, increased pain, unusual drainage and unusual redness Dressing: Keep dressing clean and dry Other wound treatment: extra dressing supplies provided, monitor incision sites daily until resolved. Visit Report/Discharge Packet Instructions: DI for Transforaminal Lumbar Interbody Fusion Stand Alone Forms: Surgery Discharge Discharge Data Primary Care Provider: Zelalem Medina Attending Provider: Dionne Smart Quality VTE Deep Vein Thrombosis/Pulmonary Embolism Present on Admission: No
== END 2021-10-25 12:06 | disposition home or self-care (01) ==
LOC: OR 06:04 → AC 06:04
PROVIDERS: PCP Internal Medicine; Referring Provider Orthopaedic Surgery Orthopaedic Surgery of the Spine; Visit Provider Orthopaedic Surgery Orthopaedic Surgery of the Spine
PROC: (CPT 22633; principal; 2021-10-24 07:45)
DX: M48.062 Spinal stenosis, lumbar region with neurogenic claudication (principal); M43.16 Spondylolisthesis, lumbar region; M54.16 Radiculopathy, lumbar region; M21.371 Foot drop, right foot; G47.33 Obstructive sleep apnea (adult) (pediatric); I45.10 Unspecified right bundle-branch block; E78.5 Hyperlipidemia, unspecified; I10 Essential (primary) hypertension
CPT/HCPCS: 22633; 20939; 63053; 63052; 22634; 22853 ×2; 22842; 36415; 72100; 76000; 82962; 85014; 85018; 97116; 97162; 97165; 97530; 97535; C1831; C9290; J0131; J0171; J0330; J0690; J1100; J1170; J2250; J2405; J2704; J3010